=== PATIENT | female | born 1990 | race Caucasian/White ===

== ENCOUNTER 2017-09-03 20:01 | Emergency (ER) | payer BC ==
[~2017-09-03] VITALS: Ht 157.5 cm; Wt 56.7 kg
[2017-09-03] MEDS ORDERED: ATIVAN1 MG ORAL (20:08)
[2017-09-03] MEDS ORDERED: ADDERAL20 MG ORAL (20:08)
[2017-09-03 20:21] VITALS: BP 120/82
[2017-09-03 20:55] LABS: MEAN CORPUSCULAR HEMOGLOBIN 30.5 PG (27.0-31.0); MEAN CORPUSCULAR HGB CONC 33.5 G/DL (32.0-36.0); MEAN CORPUSCULAR VOLUME 91 FL (80-99); MEAN PLATELET VOLUME 5.7 FL (6.5-10.1); PLATELET COUNT 244 K/UL (150-450); RED CELL DISTRIBUTION WIDTH 10.9 % (11.6-14.8); WHITE BLOOD COUNT 10.9 K/UL (4.8-10.8)
[2017-09-03 21:05] VITALS: BP 120/82
[2017-09-03 21:15] LABS: ALANINE AMINOTRANSFERASE 21 U/L (12-78); ALBUMIN/GLOBULIN RATIO 1.1 (1.0-2.7); ANION GAP 14 mmol/L (5-15); ASPARTATE AMINO TRANSFERASE 17 U/L (15-37); CARBON DIOXIDE 23 MMOL/L (21-32); CHLORIDE 106 MMOL/L (98-107); CREATININE 0.8 MG/DL (0.55-1.30); GLOMERULAR FILTRATION RATE > 60 mL/min (>60); LIPASE 104 U/L (73-393); POTASSIUM 4.1 MMOL/L (3.5-5.1); SODIUM 143 MMOL/L (136-145); TOTAL PROTEIN 7.7 G/DL (6.4-8.2)
[2017-09-03 21:18] LABS: BAND NEUTROPHILS % (MANUAL) 0 % (0-8); BASOPHILS % (MANUAL) 1 % (0-2); EOSINOPHILS % (MANUAL) 0 % (0-3); LYMPHOCYTES % (MANUAL) 20 % (20-45); NEUTROPHILS % (MANUAL) 77 % (45-75); PLATELET ESTIMATE ADEQUATE; PLATELET MORPHOLOGY NORMAL; TOTAL CELLS COUNTED 100
--- NOTE | 2017-09-04 14:30 | Emergency Room Report ---
History of Present Illness General Chief Complaint: Nausea, Vomiting, and Diarrhea Source: Patient Present Illness HPI 27YOF walk-in c/o "severe dehydration." States generalized abd pain and vomiting "30-40x" today with diarrhea. History of anxiety, depression. Denies SI, HI, AVH No previous abd/pelvic surgeries Denies foreign travel Denies other sick contacts at home, work Endorses "drank a lot of alcohol last night" but doesnt drink daily. Allergies: Coded Allergies: SHELLFISH DERIVED (Verified Allergy, Unknown, 09/03/17) Patient History Past Medical History: psych hx Past Surgical History: none Pertinent Family History: none Social History: Denies: smoking, alcohol use, drug use Last Menstrual Period: unk Now: No - IUD Nursing Documentation-PMH Past Medical History: No History, Except For History Of Psychiatric Problem: Yes - depression Review of Systems All Other Systems: negative except mentioned in HPI Physical Exam Vital Signs Date Time Temp Pulse Resp B/P (MAP) Pulse Ox O2 Delivery O2 Flow Rate FiO2 09/03/17 20:03 98.1 100 16 120/82 98 Room Air Sp02 EP Interpretation: reviewed, normal General Appearance: normal inspection, well appearing, no apparent distress, alert, GCS 15, non-toxic, other - Dramatic, histrionic Head: atraumatic Eyes: bilateral eye PERRL, bilateral eye EOMI ENT: normal ENT inspection, hearing grossly normal, normal voice Neck: normal inspection, full range of motion, supple, no bony tend Respiratory: normal inspection, lungs clear, normal breath sounds, no respiratory distress, no retraction, no wheezing Cardiovascular #1: regular rate, rhythm, no edema Gastrointestinal: normal inspection, normal bowel sounds, non tender, soft, no guarding, no hernia Genitourinary: no CVA tenderness Musculoskeletal: normal inspection, back normal, normal range of motion, Greyson' s Sign negative Neurologic: normal inspection, alert, oriented x3, responsive, reverser III-XII nml as tested, speech normal Psychiatric: normal inspection, judgement/insight normal, mood/affect normal Skin: normal inspection, normal color, no rash Lymphatic: normal inspection Medical Decision Making Diagnostic Impression: Primary Impression: Nausea, vomiting, and diarrhea ER Course VSS. Afebrile. Endorsing multiple episodes of vomiting, dehydration No clinical signs of dehydration I told patient she doesnt need IV hydration but she is insisting - however she left after 500cc of NS. She had a non-focal abd on serial exam Labs: No leuks. H&H stable. No LFT abnormalities ?alcoholic gastritis from ETOH binge vs viral gastroenteritis Doubt serious bacterial or surgical etiology at this point Refused Rx PMD followup as needed DC home Last Vital Signs Date Time Temp Pulse Resp B/P (MAP) Pulse Ox O2 Delivery O2 Flow Rate FiO2 09/03/17 21:05 98.1 81 12 120/82 100 Room Air Status: improved Disposition: HOME, SELF-CARE Condition: Improved Referrals: NOT CHOSEN IPA/,REFERRING (PCP) Patient Instructions: Dehydration, Adult, [id number] LAURA AGUILLON M.D. Sep 04, 2017 14:30
== END 2017-09-03 21:05 | disposition home or self-care (01) ==
LOC: EMR 20:54
DX: R11.2 Nausea with vomiting, unspecified (principal); R19.7 Diarrhea, unspecified; F32.9 Major depressive disorder, single episode, unspecified
CPT/HCPCS: 36415; 80053; 83690; 85007; 85025; 96374; 96375; 99284; J2405; S0028